=== PATIENT | female | born 1995 ===

== ENCOUNTER 2021-02-10 05:27 | Inpatient (IN) | payer MEDICAID ==
[2021-02-10] VITALS (15 sets, daily range): BP systolic 109–132; BP diastolic 48–77; PULSE 53–77; TEMP 96.6–98.6
[~2021-02-10] VITALS: Ht 162.6 cm; Wt 151.4 kg
--- NOTE | 2021-02-10 05:40 | NUR ---
G2L1 arrives to unit ambulatory for scheduled section. Pt reports feeling good movement, had some contractions yesterday but nothing this morning. Denies LOF or vaginal bleeding. Clean gown on. Oriented to room, bed in low and locked position, call light within reach. US and toco explained and applied. Vital signs obtained. 18G IV started in left hand with 1 attempt. Admission labs obtained off IV start. Lactated Ringers infusing to gravity. Consents reviewed and signed. All questions answered.
[2021-02-10] MEDS ORDERED: PRENATAL TABLET PO (06:24)
[2021-02-10 06:27] LABS: BASO % 0.3 % (0.0-2.0); EOS # 0.1 (0.0-0.7); EOS % 1.5 % (0-4.0); GRAN # 4.8 (1.4-6.5); GRAN % 70.5 % (42.2-75.2); HEMOGLOBIN 10.6 g/dl (12.5-16.0); LYMPH # 1.4 (1.2-3.4); LYMPH % 21.2 % (20.0-51.0); MEAN CELL VOLUME 78 fl (80.0-100.0); MEAN CORPUSCULAR HEMOGLOBIN 24 pg (27.0-31.0); MEAN CORPUSCULAR HGB CONC 31 g/dl (33.0-37.0); MEAN PLATELET VOLUME 11.3 fl (7.4-10.4); MONO # 0.4 (0.1-0.6); MONO % 5.8 % (1.7-9.3); PLATELET COUNT 267 K/mm3 (130-400); RED BLOOD COUNT 4.34 M/mm3 (4.10-5.30); REDCELL DISTRIBUTION WIDTH-CV 14.5 % (11.5-14.5)
--- NOTE | 2021-02-10 07:21 | NUR ---
RN TOOK OVER CARE OF STABLE, UNDELIVERED PT. PT. HAD 18G IV TO L. HAND W/ LR RUNNING. EXTERNAL MONITOR AND TOCO ON PT. STRIP REACTIVE. UPON EXAMINING STRIP, PERIODS OF DIFFICULTY TRACING FHT WAS NOTICED. REACTIVE 20MIN STRIP BEFORE DISCONTINUING MONITORS. ASSESSMENTS COMPLETED, PREOP MEDS GIVEN (SEE EMAR). PT. STABLE WITH NO QUESTIONS/CONCERNS
--- NOTE | 2021-02-10 09:01 | NUR ---
IN PACU AT 0847. PT. IN STABLE CONDITION W/ NO COMPLAINTS. VITAL SIGNS WNL. BLEEDING SMALL AMOUNT, NO CLOTS NOTED. PT. COMFORTABLE. WILL MONITOR PT. FOR 30M IN PACU LONG PT. IS STABLE THEN FINISH RECOVERY IN PP ROOM.
[2021-02-11 01:00] VITALS: BP 113/60; PULSE 76; TEMP 98.6
[2021-02-11 05:30] VITALS: BP 122/45; PULSE 71; TEMP 97.8
[2021-02-11 07:00] VITALS: BP 128/78; PULSE 86; TEMP 98.2
--- NOTE | 2021-02-11 10:20 | NUR ---
Initial visit; Parents thanked [employer] Sergeant for offering congratulations and God's blessings for the of their son. [employer] Police Sergeant thanked family for choosing [facility].
[2021-02-11 16:44] VITALS: BP 125/60; PULSE 62; TEMP 97.8
[2021-02-11 20:00] VITALS: BP 133/61; PULSE 70; TEMP 97.5
[2021-02-12 04:00] VITALS: BP 123/68; PULSE 69; TEMP 97.9
[2021-02-12 08:25] VITALS: BP 127/63; PULSE 66; TEMP 98
[2021-02-12] MEDS ORDERED: PERCOCET 325 MG1 TA2 PO (08:52)
[2021-02-12] MEDS ORDERED: MOTRIN 800800 MG/TAB PO (08:52)
[2021-02-12 14:21] VITALS: BP 139/70; PULSE 89; TEMP 98.5
== END 2021-02-12 15:00 | disposition home or self-care (01) | DRG 787 ==
LOC: OB 05:27
PROVIDERS: ADMIT Obstetrics & Gynecology
PROC: 10D00Z1 Extraction of Products of Conception, Low, Open Approach (ICD-10-PCS; principal; 2021-02-10)
DX: O34.211 Maternal care for low transverse scar from previous cesarean delivery (principal); O10.92 Unspecified pre-existing hypertension complicating childbirth; Z3A.39 39 weeks gestation of pregnancy; Z37.0 Single live birth; K21.9 Gastro-esophageal reflux disease without esophagitis; E66.9 Obesity, unspecified; O99.62 Diseases of the digestive system complicating childbirth; O99.214 Obesity complicating childbirth
CPT/HCPCS: J0690; J1100; J1885; J2210; J2405; J2590; J2765; J3010; J7120